=== PATIENT | male | born 2000 | race Caucasian/White ===

== ENCOUNTER 2020-05-16 20:15 | Emergency (ER) | payer OTHER ==
[~2020-05-16] VITALS: Ht 187 cm; Wt 100.0 kg
[2020-05-16] MEDS ORDERED: ONDANSETRON 4 MG/2 ML (SDV) Z0FRAN ONE (20:22)
[2020-05-16] MEDS ORDERED: NS IV 1000 ML 1,000 ML ONE (20:22)
[2020-05-16] MEDS ORDERED: diphenhydrAMINE 50 MG/ML INJ (BENADRYL) ONE (20:22)
[2020-05-16] MEDS ORDERED: FAMOTIDINE 20MG/2ML IV (PEPCID) ONE (20:22)
[2020-05-16] MEDS ORDERED: FAMOTIDINE 20MG/2ML IV (PEPCID) IV STA (20:23)
[2020-05-16] MEDS ORDERED: diphenhydrAMINE 50 MG/ML INJ (BENADRYL) IV STA (20:23)
--- NOTE | 2020-05-16 20:27 | ED General ---
General Chief Complaint: Allergic Reaction Stated Complaint: ALLERGIC REACTION Source of Information: Patient Exam Limitations: No Limitations History of Present Illness Date Seen by Provider: May 16, 2020 Time Seen by Provider: 20:20 Initial Comments 19-year-old male presents with allergic reaction. Patient has a known nut allergy. Patient reports he ate some sugar-free ice came that was made with [employer]. Patient recognizes a reaction and gave himself an EpiPen shot and took 10 mL's of children's Benadryl. Patient is starting to get itchy. He denies any shortness of breath, wheezing. He does have some mild nausea. Patient does not have a rash at this time he does not have any difficulty swallowing. Allergies and Home Medications Allergies Uncoded Allergies: nuts (Allergy, Severe, 05/16/20) Home Medications Epinephrine 0.3 Mg/0.3 Ml Auto.injct, 0.3 MG IJ PD Prescribed by: TACOS POTTER on 05/16/202122 Patient Home Medication List Home Medication List Reviewed: Yes Review of Systems Review of Systems Constitutional: No chills, No fever Respiratory: No cough, No short of breath, No wheezing Cardiovascular: no symptoms reported Gastrointestinal: No abdominal pain; nausea Skin: see HPI, pruritus Past Xrogzwd-Aezanr-Ntlvre Hx Past Med/Social Hx: Reviewed Nursing Past Med/Soc Hx Patient Social History Recent Foreign Travel: No Contact w/Someone Who Travel: No Physical Exam Vital Signs Capillary Refill : Height, Weight, BMI Height: '" Weight: lbs. oz. kg; BMI Method: General Appearance: Anxious HEENT: PERRL/EOMI, TMs Normal, Pharynx Normal Neck: Non Tender, Supple Respiratory: Lungs Clear, Normal Breath Sounds Cardiovascular: Regular Rate, Rhythm Gastrointestinal: Soft Extremity: Normal Capillary Refill Neurologic/Psychiatric: Alert, Oriented x3, Normal Mood/Affect, microsoft dynamics consultant II-XII Norm as Tested Skin: Normal Color, Warm/Dry Progress/Results/Core Measures Suspected Sepsis SIRS Temperature: Pulse: Respiratory Rate: Blood Pressure / Mean: Results/Orders My Orders Orders - TACOS POTTER DO Famotidine Injection (Pepcid Injection) (05/16/20 20:23) Ed Iv/Invasive Line Start (05/16/20 20:23) Diphenhydramine Injection (Benadryl Inje (05/16/20 20:23) Dexamethasone Injection (Decadron Inject (05/16/20 20:30) Diphenhydramine Injection (Benadryl Inje (05/16/20 20:22) Ns Iv 1000 Ml (Sodium Chloride 0.9%) (05/16/20 20:22) Ondansetron Injection (Zofran Injectio (05/16/20 20:22) Famotidine Injection (Pepcid Injection) (05/16/20 20:22) Ondansetron Injection (Zofran Injectio (05/16/20 20:30) Medications Given in ED Current Medications Medications Dose Ordered Sig/Ebenezer Route Start Time Stop Time Status Last Admin Dose Admin Dexamethasone Sodium Phosphate 10 mg ONCE ONCE IV 05/16/20 20:30 05/16/20 20:31 DC 05/16/20 20:55 10 MG Diphenhydramine HCl 50 mg STK-MED ONCE .ROUTE 05/16/20 20:22 05/16/20 20:25 DC 05/16/20 20:35 50 MG Famotidine 20 mg STK-MED ONCE .ROUTE 05/16/20 20:22 05/16/20 20:25 DC 05/16/20 20:36 20 MG Sodium Chloride 1,000 ml @ ud STK-MED ONCE .ROUTE 05/16/20 20:22 05/16/20 20:25 DC 05/16/20 20:36 1,000 MLS/HR Vital Signs/I&O Capillary Refill : Progress Note : Time: 22:43 Progress Note Patient with no further symptoms throughout his ER stay. Patient reports he has accessed and the EpiPen at home. Patient is ready be discharged home. I did prescribe him a refill for his epi pin to [facility]. Patient should return to the ER as needed. Departure Impression Primary Impression: Anaphylactic reaction Qualified Codes: T78.2XXA - Anaphylactic shock, unspecified, initial encounter Disposition: 01 HOME, SELF-CARE Condition: Stable Departure-Patient Inst. Referrals: NO,LOCAL PHYSICIAN (PCP/Family) Primary Care Physician Patient Instructions: Anaphylaxis, Epinephrine Autoinjectors Scripts Epinephrine (Epipen 2-Rainer) 0.3 Mg/0.3 Ml Auto.injct 0.3 MG IJ PD, #1 PACKET Prov: TACOS POTTER DO 05/16/20 TACOS POTTER DO May 16, 2020 20:27
[2020-05-16] MEDS ORDERED: ONDANSETRON 4 MG/2 ML (SDV) Z0FRAN IVP ONE (20:30)
[2020-05-16] MEDS ORDERED: DEXAMETHASONE 10 MG/ML (DECADRON) 1 ML VIAL IV ONE (20:30)
[2020-05-16] MEDS ORDERED: EPIN0.3P3 IJ (21:23)
[2020-05-16 22:52] VITALS: BP 149/94
== END 2020-05-16 22:53 | disposition home or self-care (01) ==
LOC: ER 20:17
DX: T78.05XA Anaphylactic reaction due to tree nuts and seeds, initial encounter (principal)